=== PATIENT | male | born 1930 | race Caucasian/White ===

== ENCOUNTER 2017-06-15 01:17 | Emergency (ER) | payer OTHER ==
[~2017-06-15] VITALS: Ht 172.7 cm; Wt 77.3 kg
[~2017-06-15 01:17] MED LIST: ACETAMINOPHEN-1 EAC3 PO; ASCORBIC ACID500 M3 PO; ASPIR 8181 M1 PO; ASPIRIN81 M2 PO; CALCIUM 600 +1 EAC1 PO; CALCIUM 600 +1 EAC5 PO; CALCIUM600 MG PO; CENTRUM CARD1 TABLET PO; CENTRUM COMPLE1 EACH PO; CENTRUM SPECIA1 EACH PO; CETIRIZINE HCL10 M2 PO; CO Q-10200 MG PO; COLACE100 MG PO; COQ-10200 MG PO; COQ10 SG 100 S1 EACH PO; DOCUSATE SODIU100 MG PO; FLUTICASONE PRO16 GM BOTH NARES; GLUCOSAMINE &1 EAC1 PO; Glucosamine/Chondroi PO; HYDROCODON-ACE1 EAC7 PO; IMDUR60 MG PO; LACTINEX PACKE1 EACH PO; LEVOFLOXACIN750 MG PO; LIPITOR20 MG PO; LITE COAT ASPI325 M1 PO; MUCUS RELIEF200 MG PO; NAPROSYN250 MG PO; NORVASC10 MG PO; SALINE NOSE SPR45 M1 BOTH NARES; TOPROL XL25 MG PO; TOPROL XL50 MG PO; TOPROL XL6.25 MG PO; TYLENOL EXTRA500 MG PO; ULTRAM50 MG PO; VITAMIN C500 M1 PO; ZYRTEC10 M2 PO; ZYRTEC10 M3 PO; [UNRECOGNIZED DRUG - OTHER] PO
[2017-06-15 01:46] LABS: HEMATOCRIT 33.9 % (38.0-50.0); MCHC 31.3 G/DL (30.0-36.0); RBC DIS.WIDTH-CV 16.3 % (11.8-14.6); RBC DIS.WIDTH-SD 58.3 % (39-53); RED BLOOD COUNT 3.53 M/uL (4.00-5.50); WHITE BLOOD COUNT 8.1 K/uL (4.1-10.2)
[2017-06-15 01:52] LABS: INTER. NORMALIZED RATIO 1.1; PROTHROMBIN TIME 11.8 SEC (10.2-12.9)
[2017-06-15 01:56] LABS: CHLORIDE 105 mEq/L (99-109); POTASSIUM 4.4 mEq/L (3.7-5.4); SODIUM 137 mEq/L (136-147)
[2017-06-15 01:58] LABS: GLUCOSE 102 mg/dL (70-99)
[2017-06-15 01:59] LABS: ANION GAP 8 MEQ/L (2-14)
[2017-06-15 02:02] LABS: GFR ESTIMATE (CALCULATED) 56 mL/min/
[2017-06-15 02:03] LABS: UREA NITROGEN (BUN) 27 mg/dL (9-23)
[2017-06-15 02:27] LABS: HEMATOLOGY COMMENT 1 SN; PLAT.SUFFICIENCY ADEQUATE; PLATELET COUNT UNABLE TO REPORT K/uL (156-360)
[2017-06-15 02:46] VITALS: BP 168/78
== END 2017-06-15 02:47 | disposition home or self-care (01) ==
LOC: EME 01:17
PROVIDERS: Emergency Medicine
DX: R04.0 Epistaxis (principal); I10 Essential (primary) hypertension; D64.9 Anemia, unspecified; Z95.1 Presence of aortocoronary bypass graft; Z95.5 Presence of coronary angioplasty implant and graft; Z79.82 Long term (current) use of aspirin
CPT/HCPCS: 80048; 85027; 85610; 99281; 99283

== ENCOUNTER 2017-06-17 10:43 | Emergency (ER) | payer OTHER ==
[~2017-06-17] VITALS: Ht 177.8 cm; Wt 75.9 kg
[2017-06-17 11:33] LABS: HEMATOCRIT 36.3 % (38.0-50.0); MCH 30.5 PG (29.0-34.0); MCHC 31.7 G/DL (30.0-36.0); MCV 96.3 FL (86-99); RBC DIS.WIDTH-CV 16.2 % (11.8-14.6); RBC DIS.WIDTH-SD 57.1 % (39-53); RED BLOOD COUNT 3.77 M/uL (4.00-5.50)
[2017-06-17 11:45] LABS: CHLORIDE 106 mEq/L (99-109); POTASSIUM 4.4 mEq/L (3.7-5.4); SODIUM 140 mEq/L (136-147)
[2017-06-17 11:48] LABS: GLUCOSE 124 mg/dL (70-99)
[2017-06-17 11:49] LABS: ANION GAP 8 MEQ/L (2-14)
[2017-06-17 11:50] LABS: TOTAL BILIRUBIN 0.5 mg/dL (0.0-1.0)
[2017-06-17 11:51] LABS: ALKALINE PHOSPHATASE 62 IU/L (3-129); GFR ESTIMATE (CALCULATED) 51 mL/min/
[2017-06-17 11:52] LABS: UREA NITROGEN (BUN) 24 mg/dL (9-23)
[2017-06-17 12:08] LABS: MEAN PLAT.VOLUME 11.6 uM^3 (9.0-12.4); PLAT.SUFFICIENCY ADEQUATE; PLATELET COUNT 310 K/uL (156-360)
[2017-06-17 12:33] LABS: LIPASE 35 U/L (1.0-51.0)
[2017-06-17 13:44] LABS: ADD MIUA? NO; BILIRUBIN NEGATIVE; BLOOD NEGATIVE; COLOR YELLOW ((YELLOW)); GLUCOSE (STRIP) NEGATIVE; KETONES NEGATIVE; LEUKOCYTES NEGATIVE; NITRITE NEGATIVE; PROTEIN (STRIP) NEGATIVE; SPECIFIC GRAVITY 1.016 (1.000-1.030); UCUL ADDED? NO; UROBILINOGEN 0.2 MG/DL (0.2-1.0)
[2017-06-17 16:51] VITALS: BP 204/95
== END 2017-06-17 16:53 | disposition home or self-care (01) ==
LOC: EME 10:43
PROC: 0T9B70Z Drainage of Bladder with Drainage Device, Via Natural or Artificial Opening (ICD-10-PCS; principal; 2017-06-17)
DX: R10.31 Right lower quadrant pain (principal); R10.32 Left lower quadrant pain; R33.9 Retention of urine, unspecified; I10 Essential (primary) hypertension; Z95.1 Presence of aortocoronary bypass graft; Z79.82 Long term (current) use of aspirin
CPT/HCPCS: 74177; 80053; 81003; 83690; 85027; 99281; 99285; J7030